=== PATIENT | male | born 1990 | race Caucasian/White ===

== ENCOUNTER → 2022-03-04 | Outpatient (CLI) | payer MEDICAID ==
--- NOTE | 2022-03-04 08:39 | CT ---
EXAMINATION TYPE: CT shoulder LT wo con DATE OF EXAM: 03/04/2022 COMPARISON: X-ray dated 03/03/2022 at 1:30 PM HISTORY: Lt shoulder injury CT DLP: 316.4 mGycm Automated exposure control for dose reduction was used. TECHNIQUE: Multiplanar CT scan of the left shoulder without IV contrast administration. 3-D reconstru ction images were generated on an independent workstation and reviewed. FINDINGS: Subtle branching linear lucencies seen along the superior lateral aspect of the scapular blade just m edial to the base of the glenoid process which could represent a subtle nondisplaced fracture. This c ould be acute or chronic, please correlate clinically. No extension to the glenoid process. Otherwise no definite acute fracture line identified. No humeral head dislocation or significant subl uxation. Minimal degenerative changes of the acromioclavicular joint. No signs of rotator cuff calcif ic tendinitis. Maintained acromiohumeral distance. IMPRESSION: Questionable subtle nondisplaced fracture along the superior-lateral aspect of the scapular blade as described above which could be acute or chronic, please correlate clinically. Follow-up CT scan can b e considered if clinically required.
== END | disposition home or self-care (01) ==
LOC: RADCTMAIN 06:33
PROVIDERS: ATTEND Orthopaedic Surgery
DX: S42.032A Displaced fracture of lateral end of left clavicle, initial encounter for closed fracture (principal); X58.XXXA Exposure to other specified factors, initial encounter

== ENCOUNTER → 2023-02-12 | Outpatient (CLI) | payer MEDICAID ==
[2023-02-12 19:41] LABS: Gliadin AB IgA, Deaminated NEGATIVE (NEGATIVE); Gliadin AB IgA, Unit <0.2 U/mL; Gliadin AB IgG, Deaminated NEGATIVE (NEGATIVE)
== END | disposition home or self-care (01) ==
LOC: LABWHC1 09:15
PROVIDERS: ATTEND Nurse Practitioner Family
DX: R19.4 Change in bowel habit (principal)
CPT/HCPCS: 36415; 83516; 85652; 86140

== ENCOUNTER 2023-03-17 17:23 | Emergency (ER) | payer MEDICAID ==
[2023-03-17 17:28] VITALS: BP 116/70; PULSE 84; TEMP 98
[2023-03-17] MEDS ORDERED: DIPH,PERTUS(ACELL)TETVAC-LF 0.5 ML VIAL IM ONE (17:47)
[2023-03-17] MEDS ORDERED: LIDOCAINE 1% INJ 10MG/ML (30 ML VIAL-PF) SQ ONE (17:47)
[2023-03-17] MEDS ORDERED: ACETAMINOPHEN TAB 325 MG TAB PO STA (17:47)
--- NOTE | 2023-03-17 17:49 | ED ---
General Adult HPI - General Chief complaint: Wound/Laceration Stated complaint: right hand laceration Time Seen by Provider: 03/17/23 17:31 Source: patient, RN notes reviewed Mode of arrival: ambulatory Limitations: no limitations - History of Present Illness Initial comments: 82-year-old male with no significant past medical history presents the emergency department with a chief complaint of right hand laceration. Patient reports that he cut his hand on a piece of metal prior to evaluation. Denies anticoagulant use. Denies numbness, tingling, weakness. He is unsure of his last tetanus vaccine - Related Data Allergies Allergy/AdvReac Type Severity Reaction Status Date / Time No Known Allergies Allergy Verified 03/17/23 17:28 Review of Systems ROS Statement: Those systems with pertinent positive or pertinent negative responses have been documented in the HPI. ROS Other: All systems not noted in ROS Statement are negative. Past Medical History Past Medical History: No Reported History History of Any Multi-Drug Resistant Organisms: None Reported Past Surgical History: Orthopedic Surgery Additional Past Surgical History / Comment(s): left ankle, Past Psychological History: No Psychological Hx Reported Smoking Status: Never smoker Past Alcohol Use History: Occasional Past Drug Use History: None Reported General Exam - General Exam Comments Initial Comments: General: Alert, in no acute distress Head: atraumatic normocephalic. Eyes PERRL, EOMI intact, mucous membranes moist Respiratory: Lungs clear to auscultation bilaterally Cardiovascular: Heart rate regular rate and rhythm Abdominal: Soft without guarding or rebound Extremities: Normal inspection with full range of motion and normal capillary refill, 100 laceration to the MCP joint that is actively bleeding. No crepitus. Full range of motion. 2+ radial pulses bilaterally distal neurovascularly intact Neuroogic: alert and oriented 3, CN II-XII intact, able to ambulate with steady gait Skin: warm dry and intact with normal color Limitations: no limitations Course Vital Signs 03/17/23 03/17/23 17:24 18:33 Temperature 98.0 F Pulse Rate 84 Respiratory 18 16 Rate Blood Pressure 116/70 O2 Sat by Pulse 96 Oximetry Medical Decision Making - Medical Decision Making Was pt. sent in by a medical professional or institution (, PA, INDIVIDUALIZED EDUCATION PLAN AIDE, urgent care, hospital, or [place] health care facility...) When possible be specific @ -[No] Did you speak to anyone other than the patient for history (EMS, parent, family, police, friend...)? What history was obtained from this source @ -[No] Did you review nursing and triage notes (agree or disagree)? Why? @ -[I reviewed and agree with nursing and triage notes] Were old charts reviewed (outside hosp., previous admission, EMS record, old EKG, old radiological studies, urgent care reports/EKG's, [place] health care facility records)? Report findings @ -[No old charts were reviewed] Differential Diagnosis (chest pain, altered mental status, abdominal pain women, abdominal pain men, vaginal bleeding, weakness, fever, dyspnea, syncope, headache, dizziness, GI bleed, back pain, seizure, CVA, palpatations, mental health, musculoskeletal)? @ -[not applicable] EKG interpreted by me (3pts min.). @ -[As above] X-rays interpreted by me (1pt min.). @ -[None done] CT interpreted by me (1pt min.). @ -[None done] U/S interpreted by me (1pt. min.). @ -[None done] What testing was considered but not performed or refused? (CT, X-rays, U/S, labs)? Why? @ -[None] What meds were considered but not given or refused? Why? @ -[None] Did you discuss the management of the patient with other professionals (professionals i.e. , PA, INDIVIDUALIZED EDUCATION PLAN AIDE, lab, RT, psych nurse, mental health social worker, metalworking specialist, teacher, head correction officer, case operator)? Give summary @ -[No] Was smoking cessation discussed for >3mins.? @ -[No] Was critical care preformed (if so, how long)? @ -[No] Were there social determinants of health that impacted care today? How? (Homelessness, low income, unemployed, alcoholism, drug addiction, transportation, low edu. Level, literacy, decrease access to med. care, [facility], rehab)? @ -[No] Was there de-escalation of care discussed even if they declined (Discuss DNR or withdrawal of care, Hospice)? DNR status @ -[No] What co-morbidities impacted this encounter? (DM, HTN, Smoking, COPD, CAD, Cancer, CVA, ARF, Chemo, Hep., AIDS, mental health diagnosis, sleep apnea, morbid obesity)? @ -[None] Was patient admitted / discharged? Hospital course, mention meds given and route, prescriptions, significant lab abnormalities, going to OR and other pertinent info. @ -Discharged. This is a pleasant 32-year-old male who presents the emergency department with laceration. Patient had a thorough history and physical exam performed. 1.5 cm laceration to right MCP joint. Full range of motion no crepitus 2+ radial pulses. Patient had 5 sutures placed to which he tolerated well return precautions were discussed at length. Patient discharged in stable condition. Case discussed with CYNDEE Burgos who agrees with plan of care Undiagnosed new problem with uncertain prognosis? @ -[No] Drug Therapy requiring intensive monitoring for toxicity (Heparin, Nitro, Insulin, Cardizem)? @ -[No] Were any procedures done? @ -[No] Diagnosis/symptom? @ -Laceration Acute, or Chronic, or Acute on Chronic? @ -Acute Uncomplicated (without systemic symptoms) or Complicated (systemic symptoms)? @ -Uncomplicated Side effects of treatment? @ -[No] Exacerbation, Progression, or Severe Exacerbation? @ -[No] Poses a threat to life or bodily function? How? (Chest pain, [place], [place], pneumonia, PE, COPD, DKA, ARF, appy, cholecystitis, CVA, Diverticulitis, Homicidal, Suicidal, threat to staff... and all critical care pts) @ -Low likelihood Disposition Clinical Impression: Laceration Disposition: HOME SELF-CARE Instructions (If sedation given, give patient instructions): Care For Your Stitches (ED) Additional Instructions: Please return to the nearest emergency department symptoms worsen or persist Is patient prescribed a controlled substance at d/c from ED?: No Referrals: None,Stated [Primary Care Provider] - 1-2 days Time of Disposition: 18:26
[2023-03-17 18:34] VITALS: RESP 16
== END 2023-03-17 18:33 | disposition home or self-care (01) ==
LOC: EC 17:23
DX: S61.411A Laceration without foreign body of right hand, initial encounter (principal); W45.8XXA Other foreign body or object entering through skin, initial encounter; Z23 Encounter for immunization
CPT/HCPCS: 90471; 90715; 99282

== ENCOUNTER → 2024-04-18 | Outpatient (CLI) | payer MEDICAID ==
--- NOTE | 2024-05-31 17:56 | CA ---
Transthoracic Echo Report Name: Nick Matos Age: 33 Gender: M : 1990 Exam Date: 04/18/2024 16:33 Exam Location: [facility] Ht (in): 72 Wt (lb): 145 Ordering Physician: Pat Vaughn DO Attending/Referring Phys: Erin Romero PAC Commissary Clerk Meseret Kee RDCS Procedure CPT: Indications: Chest Pain Cardiac Hx: Technical Quality: Good Contrast 1: Total Dose (mL): Contrast 2: Total Dose (mL): MEASUREMENTS (Male / Female) Normal Values 2D ECHO LV Diastolic Diameter PLAX 3.9 cm 4.2 - 5.9 / 3.9 - 5.3 cm LV Systolic Diameter PLAX 2.9 cm IVS Diastolic Thickness 1.1 cm 0.6 - 1.0 / 0.6 - 0.9 cm LVPW Diastolic Thickness 1.1 cm 0.6 - 1.0 / 0.6 - 0.9 cm LV Relative Wall Thickness 0.6 RV Internal Dim ED PLAX 2.9 cm LV Diastolic Volume MOD BP 96.6 cm??? 67 - 155 / 56 - 104 cm??? LV Systolic Volume MOD BP 44.7 cm??? 22 - 58 / 19 - 49 cm??? LV Ejection Fraction MOD BP 53.7 % >= 55 % LV Cardiac Index MOD BP 2139.4 cm???/min???m??? LV Diastolic Volume MOD 4C 94.7 cm??? LV Systolic Volume MOD 4C 48.6 cm??? LV Ejection Fraction MOD 4C 48.7 % LV Cardiac Index MOD 4C 1901.1 cm???/min???m??? LV Diastolic Length 4C 7.8 cm LV Systolic Length 4C 6.5 cm LV Diastolic Volume MOD 2C 98.0 cm??? LV Systolic Volume MOD 2C 41.0 cm??? LV Ejection Fraction MOD 2C 58.1 % LV Cardiac Index MOD 2C 2351.5 cm???/min???m??? LV Diastolic Length 2C 7.9 cm LV Systolic Length 2C 6.6 cm LA Volume 37.2 cm??? 18 - 58 / 22 - 52 cm??? LA Volume Index 20.5 cm???/m??? 16 - 28 cm???/m??? M-MODE Aortic Root Diameter MM 2.3 cm LA Systolic Diameter MM 3.2 cm LA Ao Ratio MM 1.4 AV Cusp Separation MM 1.8 cm DOPPLER AV Peak Velocity 190.5 cm/s AV Peak Gradient 14.5 mmHg AV Mean Velocity 137.3 cm/s AV Mean Gradient 8.2 mmHg AV Velocity Time Integral 37.1 cm LVOT Peak Velocity 105.7 cm/s LVOT Peak Gradient 4.5 mmHg LVOT Velocity Time Integral 23.5 cm MV Area PHT 4.1 cm??? Mitral E Point Velocity 81.4 cm/s Mitral A Point Velocity 46.0 cm/s Mitral E to A Ratio 1.8 MV Deceleration Time 185.6 ms MV E' Velocity 17.3 cm/s Mitral E to MV E' Ratio 4.7 FINDINGS Left Ventricle Left ventricular ejection fraction is estimated at 50-55 %. Mildly decreased left ventricular ejection fraction. Left ventricular cavity size normal. No obvious regional wall motion abnormalities. Right Ventricle Normal right ventricular size and function. Unable to estimate the right ventricular systolic pressure. Right Atrium Normal right atrial size. Left Atrium Normal left atrial size. Mitral Valve Structurally normal mitral valve. No evidence for mitral valve prolapse. No mitral stenosis. Trace mitral regurgitation. Aortic Valve Trileaflet aortic valve. No aortic valve stenosis or regurgitation. Tricuspid Valve Structurally normal tricuspid valve. No tricuspid stenosis. No tricuspid regurgitation. Pulmonic Valve No pulmonic stenosis. No pulmonic regurgitation. Pericardium No pericardial effusion. Aorta Aortic annulus normal. CONCLUSIONS Diagnosis chest discomfort Left ventricular systolic function at the lower limits of normal of 50 to 55% No significant valvular abnormalities Previewed by: Dr. Steve Momin MD (Electronically Signed) Final Date: 31 May 2024 17:55
== END | disposition home or self-care (01) ==
LOC: RADECHMAIN 16:00
PROVIDERS: ATTEND Family Medicine
DX: Q23.1 Congenital insufficiency of aortic valve (principal); R07.89 Other chest pain
CPT/HCPCS: 93306